=== PATIENT | female | born 1955 | race Caucasian/White ===

== ENCOUNTER 2017-01-20 15:43 | Emergency (ER) | payer OTHER ==
[~2017-01-20] VITALS: Ht 162.6 cm; Wt 96.0 kg
[~2017-01-20 15:43] MED LIST: ALPR0.25 PO; AZIT250T PO; PRED10TA PO
[2017-01-20 15:47] VITALS: BP 169/91; PULSE 99; TEMP 36.7; O2SAT 95; Ht 162.6 cm; Wt 96.0 kg
[2017-01-20] MEDS ORDERED: LSX20 PO (16:51)
[2017-01-20] MEDS ORDERED: WLLSR150 PO (16:51)
[2017-01-20] MEDS ORDERED: VARE1PAK15 PO (16:52)
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
== END 2017-01-20 16:50 | disposition left against medical advice (07) ==
LOC: C.EDB 15:45 → C.EDC 16:50
DX: R05 Cough (principal); J44.9 Chronic obstructive pulmonary disease, unspecified; I10 Essential (primary) hypertension; F17.200 Nicotine dependence, unspecified, uncomplicated